=== PATIENT | female | born 1990 | race Caucasian/White ===

== ENCOUNTER 2020-10-14 12:33 | Emergency (ER) | payer OTHER ==
[~2020-10-14] VITALS: Ht 172.7 cm; Wt 115.0 kg
--- NOTE | 2020-10-14 12:42 | NUR ---
EKG IN TRIAGE
[2020-10-14 13:23] LABS: ALBUMIN 4.1 g/dL (3.4-5.0); ANION GAP 7 mmol/L (5-15); CHLORIDE 104 mmol/L (98-107)
[2020-10-14 13:26] LABS: TROPONIN I < 0.015 ng/mL (0.000-0.045)
--- NOTE | 2020-10-14 14:11 | NUR ---
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
[2020-10-14 14:56] LABS: BASOPHILS % (AUTO) 1 % (0-1); EOSINOPHILS % (AUTO) 1 % (1-7); LYMPHOCYTES % (AUTO) 10 % (22-44); MEAN CORPUSCULAR HEMOGLOBIN 16.8 pg (27.0-34.8); MEAN PLATELET VOLUME 8.6 fL (7.4-10.4); MONOCYTES % (AUTO) 11 % (2-9); NEUTROPHILS % (AUTO) 78 % (42-75); PLATELET COUNT 338 x10^3/uL (130-400); RED BLOOD COUNT 4.26 x10^6/uL (3.82-5.3); RED CELL DISTRIBUTION WIDTH 23.6 % (9.6-15.2)
--- NOTE | 2020-10-14 15:14 | NUR ---
PT AMBULATED TO BR WITHOUT DIFFICULTY. INSTRUCTED ON CLEAN CATCH URINE SAMPLE.
[2020-10-14 15:23] LABS: MD MORPH REVIEW ONLY
[2020-10-14 15:24] LABS: ANISOCYTOSIS 1+; HYPOCHROMIA 2+; MICROCYTOSIS 2+; POLYCHROMASIA 1+
[2020-10-14 15:25] LABS: OVALOCYTES 1+; STOMATOCYTES 1+; TEAR DROPS 1+
[2020-10-14 15:26] LABS: <PLATELET ESTIMATE> ADEQUATE
--- NOTE | 2020-10-14 15:38 | NUR ---
ERP IN TO SEE PT. PT CRYING WHILE DISCUSSING SYMPTOMS WITH ERP.
[2020-10-14 15:59] LABS: MICROSCOPIC INDICATED
[2020-10-14] MEDS ORDERED: HYDROmorphone 1 MG/ML, 1ML INJ ONE (16:00)
--- NOTE | 2020-10-14 16:13 | NUR ---
PT MEDICATED PER ORDERS. TO CT VIA [facility].
[2020-10-14] MEDS ORDERED: HYDROmorphone 1 MG/ML, 1ML INJ IM ONE (16:30)
--- NOTE | 2020-10-14 17:31 | NUR ---
PT SLEEPING AFTER MEDS. BREATHING WNL. PLAN FOR PELVIC US.
--- NOTE | 2020-10-14 18:03 | NUR ---
TRANSVAGINAL US BEING DONE AT BS WITH RN [employer].
[2020-10-14 19:43] VITALS: BP 118/62
--- NOTE | 2020-10-14 20:21 | NUR ---
ERP WAS IN FOR RECHECK. D/C INSTRUCTIONS, MEDS & F/U APPT RV'WD WITH PT, SHE VERBALIZES UNDERSTANDING. RX GIVEN X1. PT AMBULATED OUT OF ED WITHOUT DIFFICULTY.
== END 2020-10-14 20:21 | disposition home or self-care (01) ==
LOC: ED 14:32
DX: D25.9 Leiomyoma of uterus, unspecified (principal); N93.9 Abnormal uterine and vaginal bleeding, unspecified; R19.04 Left lower quadrant abdominal swelling, mass and lump; I50.9 Heart failure, unspecified; R00.0 Tachycardia, unspecified; Z87.891 Personal history of nicotine dependence
CPT/HCPCS: 36415; 71045; 74176; 76830; 80048; 81001; 82040; 83880; 84484; 84702; 85025; 93005; 96372; 99285; J1170